=== PATIENT | female | born 1970 | race Asian ===

== ENCOUNTER 2020-01-16 16:15 | Observation (INO) | payer OTHER ==
[~2020-01-16] VITALS: Ht 160 cm; Wt 68.3 kg
[2020-01-16 16:33] VITALS: Ht 160 cm; Wt 68.3 kg
[2020-01-16 17:57] LABS: CALCIUM 8.4 mg/dL (8.5-10.1); CARBON DIOXIDE 23.4 mmol/L (21-32); CHLORIDE SERUM 110 mmol/L (98-107); CREATININE SERUM 0.6 mg/dL (0.6-1.0); GFR1 > 60 mL/min; GLUCOSE SERUM 100 mg/dL (74-106); POTASSIUM SERUM 3.9 mmol/L (3.5-5.1); SODIUM SERUM 143 mmol/L (136-145)
[2020-01-16 18:02] LABS: ALBUMIN 3.4 g/dL (3.4-5.0); ALKALINE PHOSPHATASE 63 U/L (46-116); ALT/SGPT 31 U/L (14-59); AST/SGOT 24 U/L (15-37); BASOPHIL % 0.7 % (0-2); BILIRUBIN TOTAL 0.3 mg/dL (0.20-1.00); PLATELET COUNT 227 x10^3mcL (130-400); TOTAL PROTEIN, SERUM 7.3 g/dL (6.4-8.2)
[2020-01-16 18:52] LABS: rbc morphology (normal/abnorm) ABNORMAL (NORMAL)
[2020-01-16 20:52] LABS: RED BLOOD CELLS 3.24 M/mm3 (4.10-5.10)
[2020-01-16 21:10] LABS: IRON 11 ug/dL (50-170); TOTAL IRON BINDING CAPACITY 501 ug/dL (250-450)
[2020-01-17 02:43] VITALS: BP 120/61
[2020-01-17 05:11] VITALS: BP 102/60
[2020-01-17 07:10] LABS: BASOPHIL % 0.4 % (0-2); PLATELET COUNT 206 x10^3mcL (130-400)
[2020-01-17 07:11] LABS: RED CELL DISTRIBUTION WIDTH 27.5 % (11.5-14.5)
[2020-01-17 07:16] LABS: ALKALINE PHOSPHATASE 57 U/L (46-116); ALT/SGPT 28 U/L (14-59); AST/SGOT 22 U/L (15-37); BILIRUBIN TOTAL 0.62 mg/dL (0.20-1.00); CALCIUM 8.1 mg/dL (8.5-10.1); CARBON DIOXIDE 26.3 mmol/L (21-32); CHLORIDE SERUM 106 mmol/L (98-107); CREATININE SERUM 0.8 mg/dL (0.6-1.0); GFR1 > 60 mL/min; GLUCOSE SERUM 77 mg/dL (74-106); POTASSIUM SERUM 3.5 mmol/L (3.5-5.1); SODIUM SERUM 140 mmol/L (136-145); TOTAL PROTEIN, SERUM 6.8 g/dL (6.4-8.2)
[2020-01-17 07:24] LABS: ALBUMIN 3.1 g/dL (3.4-5.0)
[2020-01-17 08:28] VITALS: BP 115/65
[2020-01-17 11:20] LABS: BASOPHIL % 0.7 % (0-2); PLATELET COUNT 224 x10^3mcL (130-400)
[2020-01-17 11:21] LABS: RED CELL DISTRIBUTION WIDTH 27.1 % (11.5-14.5)
[2020-01-17 12:08] VITALS: BP 106/64
[2020-01-17] MEDS ORDERED: COLACE100 MG PO (13:19)
[2020-01-17] MEDS ORDERED: [UNRECOGNIZED DRUG - OTHER] PO (13:19)
[2020-01-17 15:21] VITALS: BP 112/62
== END 2020-01-17 15:40 | disposition home or self-care (01) ==
LOC: ED 16:15 → DU 20:22
PROVIDERS: Emergency Medicine; ADMIT Hospitalist; ATTEND Hospitalist
DX: D50.9 Iron deficiency anemia, unspecified (principal); R42 Dizziness and giddiness
CPT/HCPCS: G0378; J7030; J7040; P9016; Q0163

== ENCOUNTER 2020-01-23 16:28 | Emergency (ER) | payer OTHER ==
[~2020-01-23] VITALS: Ht 162.6 cm; Wt 66.7 kg
[~2020-01-23 16:28] MED LIST: COLACE100 MG PO; [UNRECOGNIZED DRUG - OTHER] PO
[2020-01-23 16:36] VITALS: Ht 162.6 cm; Wt 66.7 kg
[2020-01-23 17:38] LABS: BASOPHIL % 0.1 % (0-2); PLATELET COUNT 253 x10^3mcL (130-400)
[2020-01-23 17:42] LABS: RED CELL DISTRIBUTION WIDTH 28.7 % (11.5-14.5)
[2020-01-23 17:46] LABS: CALCIUM 8.6 mg/dL (8.5-10.1); CARBON DIOXIDE 24.2 mmol/L (21-32); CHLORIDE SERUM 105 mmol/L (98-107); CREATININE SERUM 0.6 mg/dL (0.6-1.0); GFR1 > 60 mL/min; GLUCOSE SERUM 171 mg/dL (74-106); POTASSIUM SERUM 3.7 mmol/L (3.5-5.1); SODIUM SERUM 138 mmol/L (136-145)
[2020-01-23 17:51] LABS: ALBUMIN 3.4 g/dL (3.4-5.0); ALKALINE PHOSPHATASE 71 U/L (46-116); ALT/SGPT 29 U/L (14-59); AST/SGOT 24 U/L (15-37); BILIRUBIN TOTAL 0.4 mg/dL (0.20-1.00); TOTAL PROTEIN, SERUM 7.4 g/dL (6.4-8.2)
[2020-01-23 17:54] LABS: ovalocyte/elliptocyte 1+; rbc morphology (normal/abnorm) ABNORMAL (NORMAL); tear drop cell (dacryocyte) 1+
[2020-01-23 18:43] VITALS: BP 130/74
== END 2020-01-23 18:44 | disposition home or self-care (01) ==
LOC: ED 16:28
PROVIDERS: Emergency Medicine
DX: D64.9 Anemia, unspecified (principal); D50.9 Iron deficiency anemia, unspecified